=== PATIENT | male | born 2000 | race American Indian/Alaskan Native ===

== ENCOUNTER 2018-04-05 08:30 | Emergency (ER) | payer OTHER ==
[2018-04-05] MEDS ORDERED: NORCO 5/325 PO ONE (09:17)
[2018-04-05] MEDS ORDERED: XANAX PO ONE (10:27)
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
[2018-04-05 11:10] LABS: Basophils % (Auto) 0.4 % (0.0-1.8); Eosinophils # (Auto) 0.1 K/mm3 (0.0-0.4); Eosinophils % (Auto) 0.8 % (0.0-4.3); Hematocrit 52.5 % (35.5-45.6); Hemoglobin 17.8 gm/dl (11.8-15.2); Lymphocytes # (Auto) 1.7 K/mm3 (1.2-5.4); Lymphocytes % (Auto) 26.8 % (13.4-35.0); Mean Corpuscular HGB Conc 34 % (32-34); Mean Corpuscular Hemoglobin 34 pg (28-32); Mean Corpuscular Volume 99 fl (84-94); Monocytes # (Auto) 0.6 K/mm3 (0.0-0.8); Monocytes % (Auto) 9.7 % (0.0-7.3); Platelet Count 266 K/mm3 (140-440); Red Cell Distribution Width 14.6 % (13.2-15.2)
[2018-04-05 11:38] LABS: Alanine Aminotransferase 14 units/L (7-56); Albumin 4.5 g/dL (3.9-5); BUN/Creatinine Ratio 11; Blood Urea Nitrogen 12 mg/dL (9-20); Calcium 10.3 mg/dL (8.4-10.2); Hemolysis Index 46
[2018-04-05 12:31] LABS: Hepatitis A Antibody IgM Non-Reactive (NonReactive); Hepatitis B Core IgM Non-Reactive (NonReactive); Hepatitis B Surface Antigen Non-Reactive (Negative); Hepatitis C Virus Antibody Non-Reactive (NonReactive)
[2018-04-05] MEDS ORDERED: ISENTRESS PO SCH (13:00)
[2018-04-05] MEDS ORDERED: VIREAD PO SCH (13:00)
[2018-04-05] MEDS ORDERED: EMTRIVA 200 MG, VIREAD 300 MG PO SCH (13:00)
[2018-04-05] MEDS ORDERED: EMTRIVA PO SCH (13:00)
[2018-04-05 13:22] VITALS: BP 91/41
== END 2018-04-05 14:17 | disposition home or self-care (01) ==
LOC: EDBD → ED 08:30
DX: T74.21XA Adult sexual abuse, confirmed, initial encounter (principal); R10.84 Generalized abdominal pain; M54.5 Low back pain; K62.89 Other specified diseases of anus and rectum; F17.200 Nicotine dependence, unspecified, uncomplicated; Y92.69 Other specified industrial and construction area as the place of occurrence of the external cause
CPT/HCPCS: 36415; 80053; 80074; 85025; 87806